=== PATIENT | female | born 1950 ===

== ENCOUNTER 2021-03-27 05:25 | Day surgery (SDC) | payer OTHER ==
[~2021-03-27 05:25] MED LIST: DITROPAN XL10 MG PO; GLIPIZIDE PO; JANUMET 50-1,01 EACH PO; LOSARTAN-HCTZ1 EACH PO; METOPROLOL SUCC25 MG PO; PROLIA60 MG/1 ML IJ; PROTONIX40 MG PO; VITAMIN D3
== END 2021-03-27 11:05 | disposition home or self-care (01) ==
LOC: CIR.AMB 05:25
PROVIDERS: ATTEND Orthopaedic Surgery
DX: M75.121 Complete rotator cuff tear or rupture of right shoulder, not specified as traumatic (principal); M75.21 Bicipital tendinitis, right shoulder; Z20.822 Contact with and (suspected) exposure to COVID-19